=== PATIENT | male | born 1940 | race Caucasian/White ===

== ENCOUNTER 2021-12-03 11:13 | Outpatient (CLI) | payer MEDICARE ==
[2021-12-03] MEDS ORDERED: DIATRIZOATE MEGLU/DIATRIZO SOD 30 ML BOTTLE PO ONE ×2 (11:52→14:10)
--- NOTE | 2021-12-03 15:13 | CT Report ---
PROCEDURE: CT abdomen pelvis with contrast INDICATIONS: 2 month history of lower abdominal pain CONTRAST: IV CONTRAST: Optiray 320 ml: 100 PO CONTRAST: Redi-Cat ml30 TECHNIQUE: After the administration of contrast, 5 mm thick sections acquired from the diaphragms to the sym physis. 5 mm thick coronal and sagittal reformats were acquired. For radiation dose reduction, the following was used: automated exposure control, adjustment of mA and/or kV according to patient size . COMPARISON: None. FINDINGS: Image quality: Excellent. ABDOMEN: Lung bases: Lung bases are clear. Heart size is normal. Solid organs: Liver and spleen are normal in size and enhancement. Gallbladder unremarkable. Bilia ry system is non dilated. Pancreas enhances normally. No adrenal nodules. Kidneys demonstrate norm al size and enhancement, without hydronephrosis. Peritoneum and bowel: Bowel loops demonstrate normal wall thickness and caliber. No free fluid or a ir. Moderate fecal debris throughout the colon. Normal appendix identified Nodes and vessels: No retroperitoneal or mesenteric adenopathy by size criteria. Aorta and inferior vena cava are normal in size. Atherosclerotic vascular calcification noted Miscellaneous: No ventral hernias. PELVIS: Genitourinary: Bladder wall thickness is normal. Miscellaneous: No inguinal hernias or adenopathy. Bones: No suspicious bony lesions. No vertebral body compression fractures. Degenerative disc dise ase and arthropathy lower lumbar spine results in severe central stenosis at L4-5 IMPRESSION: 1. No acute CT findings in the abdomen and pelvis. 2. Moderate fecal debris throughout the colon without obstruction. 3. 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
== END 2021-12-03 11:14 | disposition home or self-care (01) ==
LOC: DI 11:13
PROVIDERS: ATTEND Physician Assistant
DX: R10.30 Lower abdominal pain, unspecified (principal); M51.36 Other intervertebral disc degeneration, lumbar region; M48.061 Spinal stenosis, lumbar region without neurogenic claudication; M47.816 Spondylosis without myelopathy or radiculopathy, lumbar region
CPT/HCPCS: 36415; 74177; 80053; 85025; Q9963; Q9967

== ENCOUNTER 2021-12-03 11:17 | Outpatient (CLI) | payer MEDICARE ==
[2021-12-03 11:28] LABS: BASOPHILS % (AUTO) 0.5 %; EOSINOPHILS # (AUTO) 0.4 10^3/uL (0.0-0.7); EOSINOPHILS % (AUTO) 6.7 %; HCT - HEMATOCRIT 38.8 % (42.0-52.0); HGB - HEMOGLOBIN 13.1 g/dL (14.0-18.0); LYMPHOCYTES % (AUTO) 30.7 %; MEAN CORPUSCULAR HEMOGLOBIN 29.5 pg (27.0-31.0); MEAN CORPUSCULAR HGB CONC 33.8 g/dL (32.0-36.0); MEAN CORPUSCULAR VOLUME 87.4 fL (80.0-94.0); MEAN PLATELET VOLUME 8.9 fL (7.4-11.4); MONOCYTES # (AUTO) 0.5 10^3/uL (0.0-1.0); MONOCYTES % (AUTO) 7.4 %; NEUTROPHILS # (AUTO) 3.6 10^3/uL (1.5-6.6); NEUTROPHILS % (AUTO) 54.5 %; PLT - PLATELET COUNT 306 10^3/uL (130-450); RED BLOOD COUNT 4.44 10^6/uL (4.70-6.10); RED CELL DISTRIBUTION WIDTH 13.6 % (12.0-15.0); WHITE BLOOD COUNT 6.6 x10^3/uL (4.8-10.8)
[2021-12-03 11:40] LABS: ALBUMIN/GLOBULIN RATIO 1.5 (1.0-2.2); BILIRUBIN,TOTAL 0.8 mg/dL (0.2-1.0); CALCIUM 9.2 mg/dL (8.5-10.3); TOTAL PROTEIN 6.7 g/dL (6.7-8.2)
== END 2021-12-03 11:18 | disposition home or self-care (01) ==
LOC: LAB 11:17
PROVIDERS: ATTEND Physician Assistant
DX: R10.30 Lower abdominal pain, unspecified (principal)
CPT/HCPCS: 36415; 80053; 85025

== ENCOUNTER 2023-10-02 14:23 | Emergency (ER) | payer MEDICARE ==
[2023-10-02 14:35] VITALS: O2SAT 100
--- NOTE | 2023-10-02 16:06 | ED Physician Documentation ---
PD HPI LOWER EXT INJURY - Stated complaint Stated Complaint: LT LEG SWELLING, PX - Chief complaint Chief Complaint: Ext Problem - Additional information Additional information: 82-year-old male with history of osteoarthritis presents emergency room for left lower extremity pain and swelling. Patient said that his nurse practitioner wanted him to come in for an MRI of his left lower extremity as his swelling has not improved over the last couple weeks he was here about 2 weeks ago where he had a venous duplex done and there was no abnormal findings visualized. He says that the intermittent paresthesias that he was initially reporting have actually improved but the swelling has not gone down and he is quite concerned that there could still be some sort of clot. No recent fevers or chills able to ambulate on left lower extremity no trauma that could be contributing to this left lower extremity swelling and pain. PD PAST MEDICAL HISTORY - Past Medical History Past Medical History: Yes Cardiovascular: None Respiratory: None Neuro: None Endocrine/Autoimmune: None GI: None : None HEENT: None Psych: None Musculoskeletal: Osteoarthritis Derm: None - Past Surgical History Past Surgical History: Yes - Present Medications Home Medications: Ambulatory Orders Medication Instructions Recorded Confirmed Apixaban [Eliquis] 5 mg PO BID 30 Days #60 tab 10/02/23 Apixaban [Eliquis] 10 mg PO BID 7 Days #28 tab 10/02/23 - Allergies Allergies/Adverse Reactions: Allergies Allergy/AdvReac Type Severity Reaction Status Date / Time No Known Drug Allergies Allergy Verified 10/02/23 14:31 - Social History Does the pt smoke?: No Smoking Status: Never smoker Does the pt drink ETOH?: No Does the pt have substance abuse?: No - Immunizations Immunizations are current?: No PD ED PE NORMAL - Vitals Vital signs reviewed: Yes - General General: Alert and oriented X 3, No acute distress, Well developed/nourished - Derm Derm: Normal color, Warm and dry, No rash, Other (No erythema) - Extremities Extremities: Other (Left lower extremity: weak dorsalis pedis pulse, left leg more swollen than right leg up to thigh.) Results - Vitals Vitals: Vital Signs - 24 hr 10/02/23 10/02/23 14:31 17:49 Temperature 36.8 C Heart Rate 54 L 55 L Respiratory 16 16 Rate Blood Pressure 157/74 H 137/73 H O2 Saturation 100 100 Oxygen O2 Source Room air - Rads (name of study) Left leg venous duplex Relevant Findings:: Final report received, EMP independent interpretation of test, Other (Extensive DVT of the left lower extremity. ) PD Medical Decision Making - ED course ED course: 82-year-old male presents emergency department for left lower extremity swelling. Venous duplex was complete for rule out possible DVT and patient does not appear to have extensive DVT in the left lower extremity it starts as a partial occlusive thrombus in the common femoral vein profunda vein distal aspect of the superficial femoral vein popliteal vein and posterior tibial vein. Patient was given a weight-based Lovenox injection here in the emergency department at 80 mg and a prescription of Eliquis was sent to his preferred pharmacy so the prep was primary care provider to let them know about today's ER visit. He denies any shortness of breath any chest pain or any other symptoms of possible pulmonary embolism. He is told very strict return precautions and bleeding risk while being on blood thinner and strict ER return precautions have been given. Departure - Departure Disposition: 01 Home, Self Care Clinical Impression: DVT (deep venous thrombosis) Instructions: Apixaban oral tablets, ED DVT Prescriptions: Apixaban [Eliquis] 10 mg PO BID 7 Days #28 tab Apixaban [Eliquis] 5 mg PO BID 30 Days #60 tab Comments: Thank you for trusting us with your care. We repeat an ultrasound of her left lower extremity and it does appear that you have a DVT in your left leg. We have given you Lovenox shot here in the emergency department to help with anticoagulation. Forms: PCP List Discharge Date/Time: 10/02/23 17:49
[2023-10-02] MEDS ORDERED: ENOXAPARIN 100 MG/ML SYRINGE SUBQ STA (17:12)
[2023-10-02] MEDS: ENOXAPARIN 80 MG/0.8 ML SYRINGE SUBQ STA (17:39)
[2023-10-02 17:54] VITALS: BP 137/73
--- NOTE | 2023-10-02 18:06 | Ultrasound Report ---
PROCEDURE: Duplex Ext Veins Left INDICATIONS: LLE swelling TECHNIQUE: Real-time imaging, as well as color and pulse Doppler interrogation, were performed of the lower extr emity deep veins from the inguinal ligament to the popliteal fossa. Attempted visualization of the ca lf veins was performed. COMPARISON: Left lower extremity ultrasound 09/09/2023. FINDINGS: There is partially occlusive thrombus in the common femoral vein, profunda vein, distal asp ect of the superficial femoral vein, popliteal vein, and posterior tibial vein. IMPRESSION: Extensive DVT in the left lower extremity. Preliminary findings conveyed to Amina Walton by the data control clerk. Reviewed by: Tristian Sharma MD on 10/02/2023 6:05 PM PDT Approved by: Tristian Sharma MD on 10/02/2023 6:05 PM PDT Station ID: [id number]
== END 2023-10-02 17:49 | disposition home or self-care (01) ==
LOC: ED 14:23
DX: I82.412 Acute embolism and thrombosis of left femoral vein (principal); I82.432 Acute embolism and thrombosis of left popliteal vein; I82.442 Acute embolism and thrombosis of left tibial vein
CPT/HCPCS: 93971; 96372; 99284; J1650